=== PATIENT | male | born 1990 | race Caucasian/White ===

== ENCOUNTER 2021-10-10 16:42 | Emergency (ER) | payer OTHER, SELFPAY ==
--- NOTE | ~2021-10-10 | XR_ITS ---
EXAMINATION: XR ANKLE, RIGHT CLINICAL INFORMATION: Fall with ankle pain COMPARISON: None TECHNIQUE: AP, lateral, and mortise views of the right ankle. FINDINGS: The bones and soft tissues are normal. No fracture. Alignment is anatomic. Joint spaces are maintained. No joint effusion. XR/XR ankle RT min 3V IMPRESSION: Normal right ankle.
[2021-10-10 16:52] VITALS: BP 140/90; BP 145/89; PULSE 87; PULSE 97; RESP 18; TEMP 37; O2SAT 100; O2SAT 97; BMI 28.5
[2021-10-10 17:28] VITALS: BP 142/92; PULSE 100; RESP 16; TEMP 37.1; O2SAT 97
--- NOTE | 2021-10-10 17:29 | ED_ITS ---
HPI - Fall General Chief Complaint: Fall Stated Complaint: INJURY/NO FALL WHILE HIKING TO ANKLE,NO MEDS GIVEN Time Seen by Provider: 10/10/21 17:28 Source: patient Mode of arrival: ambulatory Limitations: no limitations History of Present Illness HPI Narrative: 31-year-old male no known medical history presents to the emergency department status post trip and fall while he was hiking earlier today. He tells me that he tripped, getting his right ankle caught, he immediately started experiencing right ankle pain, he tells me that he heard a ?pop? and started having severe pain 10/10. He is unable to bear weight on the right lower extremity. Pain is worse with movement better at rest. He denies numbness, paresthesias, head strike, loss of consciousness, chest pain, shortness of breath, dizziness, headache, vision changes. He is not on blood thinners. MD complaint: fall Onset (ago): hour(s) (1) Fall from: standing Place fall occurred: other [place] Loss of consciousness: none Prolonged down time: no Symptoms prior to fall: none Context: tripped/slipped Location of injury: other (Right lower extremity.) Severity: severe Severity scale (1-10): 10 Quality: sharp and other (Severe) Associated symptoms (after fall): denies Related Data Previous Rx's Medication Instructions Recorded naproxen 500 mg tablet 500 mg PO BID PRN #14 tab 10/10/21 Allergies Allergy/AdvReac Type Severity Reaction Status Date / Time No Known Allergies Allergy Verified 10/10/21 16:58 Review of Systems Review of Systems: Constitutional : No Weight loss, No Fever, No Chills, No Fatigue, No Malaise ENT/Mouth : No sore throat, No Rhinorrhea Eyes: No Eye Pain, No Swelling, No Redness Cardiovascular : No Chest Pain, No SOB, No Dyspnea on Exertion, No Orthopnea, No Edema, No Palpitations Respiratory : No Cough, No Sputum, No Wheezing Gastrointestinal : No Nausea, No Vomiting, No Diarrhea, No Constipation, No a bdominal Pain, No Hematochezia, No Melena Genitourinary : No Dysuria, No Urinary Frequency, No Hematuria, Musculoskeletal : + joint pain, No Myalgias, + Joint Swelling Skin : No Skin Lesions, No rash Neuro : No Weakness, No Numbness, No Dizziness, No Headache All other systems reviewed and are negative Yes all other systems are reviewed and are negative FOR[facility]LY [facility] Past Medical History Attestation statement: The following information was validated with the patient. Source: old records reviewed and nursing notes reviewed Medical History No home medical services Surgical History No pertinent past surgical history Social History Social History Advance Directives: No Advance Directives Information Provided: Yes Physical Exam Vital Signs: Vital Signs: Last Vital Signs Temp 98.8 F 10/10/21 17:28 Pulse 100 10/10/21 17:28 Resp 16 10/10/21 17:28 BP 142/92 H 10/10/21 17:28 Pulse Ox 97 10/10/21 17:28 BMI result Body Mass Index 28.5 Vital signs are stable, noted to be slightly hypertensive likely secondary to pain. Appearance: Alert.? Oriented X3.? No acute distress.? Head: Normocephalic, atraumatic, no step-offs or deformities Eyes: Pupils equal, round and reactive to light.? ENT: Pharynx normal.? Neck: Normal inspection.? Neck supple.? CVS: Normal heart rate and rhythm.? Pulses normal.? Respiratory: No respiratory distress.? Breath sounds normal.? Abdomen: Soft and nontender.? Skin: Skin warm and dry.? Normal skin color.? Normal skin turgor.? Extremities: No lower extremity edema.? No calf ttp. 5/5 strength to bilateral upper and lower extremities + pain with palpation over medial and lateral maleolous on right. Normal on left + swollen right ankle. Left ankle appears to be normal. 2+ pulses to bilateral dorsalis pedis and posterior tibialis. Negative Enriquez's test, unlikely Achilles tendon rupture. Back: No midline tenderness, no C-spine tenderness, full range of motion, no CVA tenderness bilaterally Neuro: Oriented X 3.? No motor deficit.? No sensory deficit. Course Reevaluation(s) Reevaluation #1: X-ray of right ankle does not show any fractures or dislocations. Comfortable with discharge home with orthopedic follow-up. He will be given crutches, and an Aircast. I have educated in to rest, ice, compress and elevate extremity. I have given him return precautions. Comfortable with discharge home Time: 18:12 MDM - Fall MDM Narrative Medical decision making narrative: 1800 31 yo M no pmhx presents s/p trip and fall w/ right ankle pain, did not hit head, no LOC. not on thinners. On exam there is no pain with palpation over medial and lateral maleolous bilaterally. Swollen right ankle. Left ankle appears to be normal. No overlying skin changes or ecchymosis. 2+ pulses to bilateral dorsalis pedis and posterior tibialis. Negative Enriquez's test, unlikely Achilles tendon rupture. Plan at this time is to obtain an x-ray Medical Records Attestation: I reviewed the patient's medical records. Lab Data Attestation: I reviewed the patient's lab results. Critical Care Time Critical Care Time Critical Care Time: No Discharge Plan Discharge Clinical Impression: Right ankle strain Patient Disposition: Home, Self-Care Instructions: Crutch Instructions (ED), R.I.C.E. Treatment (ED), Ankle Strain (ED), Cold Compress or Soak (ED) Additional Instructions: Take your medications as prescribed. Follow-up with your primary care provider this week. Follow-up with orthopedics if your symptoms do not improve in a week or 2. Your ankle x-ray showed no fractures or dislocations. Return to the emergency department with new or worsening symptoms. In case of emergency call 911 Prescriptions: New naproxen 500 mg tablet 500 mg PO BID PRN (Reason: pain) Qty: 14 RF: 0 Referrals: Jermain Wadsworth MD [Physician] - 2 weeks Physician,Unknown J [Primary Care Provider] - 2 days Stand Alone Forms: Work/School Release
[2021-10-10] MEDS: Ketorolac Tromethamine 30 MG/ML VIAL IM (18:26)
== END 2021-10-10 18:51 | disposition home or self-care (01) ==
PROVIDERS: Emergency Provider Emergency Medicine
DX: S96.911A Strain of unspecified muscle and tendon at ankle and foot level, right foot, initial encounter (principal); W01.0XXA Fall on same level from slipping, tripping and stumbling without subsequent striking against object, initial encounter; Y93.01 Activity, walking, marching and hiking; Y92.89 Other specified places as the place of occurrence of the external cause; Y99.9 Unspecified external cause status
CPT/HCPCS: 73610; 96372; 99283; 99284; J1885